=== PATIENT | female | born 1960 | race Caucasian/White ===

== ENCOUNTER → 2016-07-20 | Outpatient (CLI) | payer OTHER | LOC: KOH-I 12:13 | DX: M25.571 Pain in right ankle and joints of right foot (principal); M25.472 Effusion, left ankle | CPT/HCPCS: 73721 ==

== ENCOUNTER → 2020-03-26 | Outpatient (CLI) | payer OTHER | LOC: HEART 5 08:17 | DX: R07.9 Chest pain, unspecified (principal) | CPT/HCPCS: 78452; 93306; A9502 ==

== ENCOUNTER → 2021-06-16 | Outpatient (CLI) | payer OTHER | LOC: KOH-I 08:17 | DX: R07.1 Chest pain on breathing (principal); M25.511 Pain in right shoulder | CPT/HCPCS: 71046; 73030 ==